=== PATIENT | female | born 2000 ===

== ENCOUNTER 2021-11-15 10:52 | Emergency (ER) | payer SELFPAY ==
[2021-11-15] MEDS ORDERED: fentaNYL 100 MCG/2 ML SDV IVPUSH ONE (11:08)
== END 2021-11-15 13:55 | disposition home or self-care (01) ==
LOC: EDBD → DL.ED 10:52
DX: S83.004A Unspecified dislocation of right patella, initial encounter (principal); W18.40XA Slipping, tripping and stumbling without falling, unspecified, initial encounter
CPT/HCPCS: 73560-RT; 99284-25